=== PATIENT | female | born 1975 | race Caucasian/White ===

== ENCOUNTER 2018-07-05 07:53 | Emergency (ER) | payer BC ==
[2018-07-05] MEDS: DIAZEPAM 5 MG TAB PO (08:31)
[2018-07-05] MEDS: DEXAMETHASONE 10 MG/ML 1 ML INJ IM (08:32)
[2018-07-05] MEDS: KETOROLAC 60 MG INJ IM (08:37)
== END 2018-07-05 09:00 | disposition home or self-care (01) ==
LOC: FTE 07:53
DX: M54.5 Low back pain (principal)
CPT/HCPCS: 81025; 96372; 99284-25